=== PATIENT | female | born 1945 | race Caucasian/White ===

== ENCOUNTER 2017-03-06 13:56 | Emergency (ER) | payer MEDICARE, BC ==
[2017-03-06] MEDS ORDERED: DIAZEPAM 5 MG/ML 2 ML SYRINGE IVP STA (14:32)
[2017-03-06] MEDS ORDERED: KETOROLAC 30 MG/ML 1 ML VIAL IVP STA (14:32)
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
--- NOTE | 2017-03-06 15:24 | XR ---
EXAMINATION TYPE: XR lumbar spine 2 or 3V DATE OF EXAM: 03/06/2017 COMPARISON: NONE HISTORY: Back pain TECHNIQUE: 3 views FINDINGS: Vertebra have normal alignment. There is 10% anterior wedging of L1 vertebral body that [place] ears to be an acute fracture. The posterior elements are intact. Sacroiliac joints appear normal. IMPRESSION: Compression fracture of L1 is probably acute. Atheromatous aorta.
--- NOTE | 2017-03-06 15:25 | XR ---
EXAMINATION TYPE: XR pelvis AP view DATE OF EXAM: 03/06/2017 COMPARISON: NONE HISTORY: Pain TECHNIQUE: Single view FINDINGS: Pelvic ring is intact. Proximal femurs and hip joints are intact. Sacroiliac joints appear normal. IMPRESSION: Negative pelvis x-ray exam.
[2017-03-06 16:55] VITALS: BP 154/72; PULSE 67; RESP 18; TEMP 98.3
== END 2017-03-06 16:15 | disposition home or self-care (01) ==
LOC: EC 13:56
DX: S32.019A Unspecified fracture of first lumbar vertebra, initial encounter for closed fracture (principal); I10 Essential (primary) hypertension; I25.2 Old myocardial infarction; F17.200 Nicotine dependence, unspecified, uncomplicated; Z79.02 Long term (current) use of antithrombotics/antiplatelets; Z79.899 Other long term (current) drug therapy; Z86.73 Personal history of transient ischemic attack (TIA), and cerebral infarction without residual deficits; X50.9XXA Other and unspecified overexertion or strenuous movements or postures, initial encounter; Y92.814 Boat as the place of occurrence of the external cause; Y93.89 Activity, other specified
CPT/HCPCS: 72100; 72170; 99283; 96374; 96375; J3360; J1885